=== PATIENT | male | born 1940 | race Caucasian/White ===

== ENCOUNTER 2018-03-04 02:49 | Outpatient (CLI) | payer MEDICARE, BC | END 2018-03-04 23:59 | disposition home or self-care (01) | LOC: DIABETIC 02:49 | PROVIDERS: ATTEND Specialist | DX: E11.65 Type 2 diabetes mellitus with hyperglycemia (principal); Z79.82 Long term (current) use of aspirin | CPT/HCPCS: G0108 ==